=== PATIENT | male | born 1990 | race Caucasian/White ===

== ENCOUNTER → 2016-07-16 | Outpatient (CLI) | payer OTHER ==
[~2016-07-16] MED LIST: NO DAILY MEDICATIONS
--- NOTE | 2016-07-17 13:17 | DI ---
Indication: [email or web address]: RIGHT HEEL PAIN, RIGHT LATERAL FOOT PAIN PROCEDURE: OS CALCIS RIGHT 2 VIEW: Encounter: Initial Comparison: None Findings/ Impression: No acute calcaneal fracture. .
--- NOTE | 2016-07-17 13:18 | DI ---
Indication: [email or web address]: RIGHT HEEL PAIN, RIGHT LATERAL FOOT PAIN PROCEDURE: FOOT RIGHT 3 VIEWS: Encounter: Initial Comparison: None Findings: There is no acute fracture, dislocation or malalignment identified. Impression: No acute osseous abnormality. .
== END ==
LOC: IMA.CCC 12:10
PROVIDERS: ATTEND Nurse Practitioner
DX: M79.671 Pain in right foot (principal)